=== PATIENT | female | born 1945 | race American Indian/Alaskan Native ===

== ENCOUNTER 2024-01-02 08:51 | Day surgery (SDC) | payer MEDICARE, OTHER ==
[~2024-01-02] VITALS: Ht 162.6 cm; Wt 74.1 kg
[~2024-01-02 08:51] MED LIST: CONEST.625; GUAPHELA PO; NAPR500 PO; SULTRIDS PO
[2024-01-02] MEDS ORDERED: VITAMIN D350 MC3 (09:21)
[2024-01-02] MEDS ORDERED: MAGCHL64ER (09:21)
[2024-01-02] MEDS ORDERED: Lactated Ringer's 1,000 ML IV ONE ×2 (09:25→09:54)
[2024-01-02] MEDS ORDERED: propofoL 50 ML IV ONE (09:32)
[2024-01-02 11:19] VITALS: BP 102/64
== END 2024-01-02 11:11 | disposition home or self-care (01) ==
LOC: ORSCSDS 08:51
PROVIDERS: Surgery
PROC: 0DJD8ZZ Inspection of Lower Intestinal Tract, Via Natural or Artificial Opening Endoscopic (ICD-10-PCS; principal; 2024-01-02 10:00)
DX: Z12.11 Encounter for screening for malignant neoplasm of colon (principal); R19.5 Other fecal abnormalities; I10 Essential (primary) hypertension; E78.2 Mixed hyperlipidemia
CPT/HCPCS: J2704; J7120